=== PATIENT | male | born 1950 | race Two or more races ===

== ENCOUNTER → 2018-04-27 | Outpatient (CLI) | payer BC, MEDICARE ==
--- NOTE | 2018-04-27 13:16 | CARD ---
MR#: [id number] Date of Study: 04/27/2018 Ordering Physician: VASQUEZ BRASWELL, Referring Physician: VASQUEZ BRASWELL, Tech: Radha Garcia APPROVED REPORT EXAM: Two-dimensional and M-mode echocardiogram with Doppler and color Doppler. Other Information Quality : AverageHR: 92bpm Technically limited study due to body habitus. INDICATION Cardiac Disease: CAD RISK FACTORS Smoking 2D DIMENSIONS RVDd3.5 (2.9-3.5cm)Left Atrium(2D)3.9 (1.6-4.0cm) IVSd1.4 (0.7-1.1cm)Aortic Root(2D)3.2 (2.0-3.7cm) LVDd4.6 (3.9-5.9cm)LVOT Diameter2.2 (1.8-2.4cm) PWd1.0 (0.7-1.1cm)LVDs2.7 (2.5-4.0cm) FS (%) 41.3 %SV69.1 ml LVEF(%)72.2 (>50%) Aortic Valve AoV Peak Brendan.132.8cm/sAoV VTI24.1cm AO Peak GR.7.1mmHgLVOT Peak Brendan.100.4cm/s LVOT VTI 20.12cmAO Mean GR.4mmHg PHUONG (VMAX)2.52qu7NBE (VTI)3.15cm2 AI P 1/2 Jweo492ad Mitral Valve MV E Pjtunofi95.0cm/sMV DECEL JLLK908um MV A Ocklqbgs40.2cm/sE/A Ratio1.0 Pulmonary Valve PV Peak Lcyatfpt607.6cm/sPV Peak Grad.6mmHg Tricuspid Valve TR P. Imbrnihb982vt/sRAP XPONGGFQ9bdWz TR Peak Gr.36fmXsISAY56lbKu Pulmonary Vein S1 Utsjuluk28.8cm/sD2 Qkybztcs46.8cm/s LEFT VENTRICLE The left ventricle is normal size. There is moderate concentric left ventricular hypertrophy. The lef t ventricular systolic function is normal and the ejection fraction is within normal range. The Eject ion Fraction is >55%. There is normal LV segmental wall motion. Transmitral Doppler flow pattern is G rade II-pseudonormal filling dynamics. RIGHT VENTRICLE The right ventricle is normal size. There is normal right ventricular wall thickness. The right ventr icular systolic function is normal. ATRIA The left atrium size is normal. The right atrium size is normal. The interatrial septum is intact wit h no evidence for an atrial septal defect or patent foramen ovale as noted on 2-D or Doppler imaging. The interatrial septum is thickened. AORTIC VALVE The aortic valve is normal in structure and function. Doppler and Color Flow revealed trace to mild a ortic regurgitation. There is no significant aortic valvular stenosis. MITRAL VALVE The mitral valve is normal in structure and function. There is no evidence of mitral valve prolapse. There is no mitral valve stenosis. Doppler and Color-flow revealed trace mitral regurgitation. TRICUSPID VALVE The tricuspid valve is normal in structure and function. Doppler and Color Flow revealed trace tricus pid regurgitation. There is no tricuspid valve stenosis. PULMONIC VALVE The pulmonic valve is not well visualized. Doppler and Color Flow revealed trace pulmonic valvular re gurgitation. GREAT VESSELS The aortic root is normal in size. The IVC was not visualized. PERICARDIAL EFFUSION There is no evidence of significant pericardial effusion. Critical Notification Critical Value: No <Conclusion> The left ventricular systolic function is normal and the ejection fraction is within normal range. Th e Ejection Fraction is >55%. There is normal LV segmental wall motion. Signed by : Duy Mederos, Electronically Approved : 04/27/2018 13:16:23
== END | disposition home or self-care (01) ==
LOC: NM 10:44
PROVIDERS: ATTEND Internal Medicine Cardiovascular Disease
DX: I25.10 Atherosclerotic heart disease of native coronary artery without angina pectoris (principal); F17.200 Nicotine dependence, unspecified, uncomplicated; I51.7 Cardiomegaly
CPT/HCPCS: 93306